=== PATIENT | male | born 1975 | race Caucasian/White ===

== ENCOUNTER 2018-01-13 20:06 | Emergency (ER) | payer MEDICARE, MEDICAID ==
[~2018-01-13] VITALS: Ht 185.4 cm; Wt 113.6 kg
[~2018-01-13 20:06] MED LIST: ATARAX50 MG PO; COGENTIN 2MG2 MG/TA1 PO; DOXYCYCLINE 10100 MG PO; FISH OIL 1000MG1 CAP PO; GEODON80 MG PO; HALDOL 5MG T5 MG/TAB PO; NEXIUM 40MG40 MG PO
[2018-01-13 20:46] LABS: BASO # 0.1 (0.0-0.2); EOS # 0.6 (0.0-0.7); EOS % 5.4 % (0-4.0); GRAN # 6.5 (1.4-6.5); GRAN % 56.2 % (42.2-75.2); HEMOGLOBIN 14.9 g/dl (13.5-18.0); LYMPH % 26.3 % (20.0-51.0); MEAN CELL VOLUME 89 fl (80.0-100.0); MEAN CORPUSCULAR HEMOGLOBIN 31 pg (27.0-31.0); MEAN CORPUSCULAR HGB CONC 35 g/dl (33.0-37.0); MEAN PLATELET VOLUME 9.3 fl (7.4-10.4); MONO # 1.3 (0.1-0.6); MONO % 10.8 % (1.7-9.3); PLATELET COUNT 410 K/mm3 (130-400); RED BLOOD COUNT 4.84 M/mm3 (4.20-5.60); REDCELL DISTRIBUTION WIDTH-CV 12.9 % (11.5-14.5)
[2018-01-13 20:47] LABS: COLLECTION METHOD CLEAN CATCH
[2018-01-13 20:53] LABS: PH 5 (5-8); SQUAMOUS EPITHELIAL None Seen /hpf; URINE APPEARANCE Clear; URINE BACTERIA None Seen /hpf; URINE BILIRUBIN Negative (NEGATIVE); URINE BLOOD Negative (NEGATIVE); URINE COLOR Straw; URINE GLUCOSE Negative (NEGATIVE); URINE KETONE Negative (NEGATIVE); URINE LEUKOCYTE ESTERASE Negative (NEGATIVE); URINE NITRATE Negative (NEGATIVE); URINE PROTEIN(semi-quant) Negative (NEGATIVE); URINE RBC 0-2 /hpf; URINE UROBILINOGEN Negative (NEGATIVE)
[2018-01-13 20:59] LABS: ACETAMINOPHEN < 10 ug/mL (10-30); ALANINE AMINOTRANSFERASE 92 U/L (21-72); ALBUMIN 5.2 gm/dL (3.5-5.0); ALCOHOL(ethanol),MEDICAL < 10 mg/dL; ALKALINE PHOSPHATASE 85 U/L (50-136); ANION GAP 12 mmol/L (7-16); AST,SGOT 58 U/L (15-37); BILIRUBIN,TOTAL 0.3 mg/dL (0.0-1.0); BLOOD UREA NITROGEN 12 mg/dL (9-20); CALCIUM 9.7 mg/dL (8.4-10.2); CARBON DIOXIDE 26 mmol/L (22-30); CHLORIDE 96 mmol/L (98-107); CREATININE, serum 0.74 mg/dL (0.66-1.25); GLUCOSE 109 mg/dL (74-106); POTASSIUM 3.4 mmol/L (3.4-5.0); SALICYLATE < 1.0 mg/dL; SODIUM 134 mmol/L (137-145); TOTAL PROTEIN 8.5 gm/dL (6.4-8.2)
[2018-01-13 21:07] LABS: TRICYCLIC ANTIDEPRESS URINE NEGATIVE
[2018-01-14 03:51] VITALS: TEMP 97.1
[2018-01-14] MEDS ORDERED: NAPROSYN500 MG PO (05:36)
[2018-01-14] MEDS ORDERED: RISPERDAL3 MG PO (05:36)
[2018-01-14] MEDS ORDERED: KRILL OIL 5001 EACH PO (05:37)
[2018-01-14] MEDS ORDERED: B COMPLEX & B121 TAB PO (05:37)
[2018-01-14] MEDS ORDERED: COLACE 100100 MG/CAP PO (05:38)
[2018-01-14 07:30] LABS: BASO # 0.1 (0.0-0.2); BASO % 0.9 % (0.0-2.0); EOS # 0.6 (0.0-0.7); EOS % 5.7 % (0-4.0); GRAN # 5.5 (1.4-6.5); GRAN % 57.5 % (42.2-75.2); HEMOGLOBIN 14.9 g/dl (13.5-18.0); LYMPH # 2.2 (1.2-3.4); LYMPH % 22.7 % (20.0-51.0); MEAN CELL VOLUME 90 fl (80.0-100.0); MEAN CORPUSCULAR HEMOGLOBIN 31 pg (27.0-31.0); MEAN CORPUSCULAR HGB CONC 35 g/dl (33.0-37.0); MEAN PLATELET VOLUME 9.6 fl (7.4-10.4); MONO # 1.2 (0.1-0.6); MONO % 12.9 % (1.7-9.3); PLATELET COUNT 410 K/mm3 (130-400); RED BLOOD COUNT 4.79 M/mm3 (4.20-5.60)
[2018-01-14 07:39] LABS: CALCIUM 9.4 mg/dL (8.4-10.2); CREATININE, serum 0.77 mg/dL (0.66-1.25); POTASSIUM 3.4 mmol/L (3.4-5.0)
[2018-01-14 13:30] VITALS: BP 122/77; PULSE 82
== END 2018-01-14 14:41 | disposition other institution (70) ==
LOC: COL.ER 20:06
PROVIDERS: Emergency Medicine; Family Medicine
DX: F33.9 Major depressive disorder, recurrent, unspecified (principal); F43.10 Post-traumatic stress disorder, unspecified; F90.9 Attention-deficit hyperactivity disorder, unspecified type